=== PATIENT | male | born 1930 | race Caucasian/White ===

== ENCOUNTER 2017-10-12 04:26 | Inpatient (IN) | payer MEDICARE, MEDICAID ==
[~2017-10-12] VITALS: Ht 170.2 cm; Wt 80.3 kg
[~2017-10-12 04:26] MED LIST: ACETAMINOPHEN325 M1 PO; ALAVERT10 MG PO; ALLERGY10 M2 PO; ARTIFICIAL TEA1 EACH OP; ARTIFICIAL TEA1 EACH OPHTHALMIC; ASPIR 8181 MG PO; ATIVAN0.5 MG PO; AUGMENTIN 500-1 EACH PO; AUGMENTIN 875875 MG PO; BENADRYL25 MG PO; CARBIDOPA-LEVO1 EAC9 PO; CLARITIN10 MG PO; CLOTRIMAZOLE-BE15 GM TOP; COLACE100 MG PO; CONSTULOSE10 GM/15 M PO; COZAAR 50 MG TA50 M2 PO; DEPAKOTE500 MG PO; DIVALPROEX SOD250 M1 PO; DIVALPROEX SOD250 M3 PO; DULCOLAX5 MG PO; DUONEB 2.5-0.5 M3 ML INH; EAR WAX DROPS15 ML OT; EXELON 9.5 MG9.5 MG TD; EXELON 9.5 MG9.5 MG TOP; EXELON1 EAC1 TOP; GLIPIZIDE ER5 MG PO; GLUCAGEN1 M2 IM; GLUCAGEN1 M2 SUBQ; GLUCOTROL5 MG; GLUCOTROL5 MG PO; HYDROCODONE-AP1 EAC6 PO; KEFLEX250 MG PO; KETOCONAZOLE15 GM TOP; KRISTALOSE10 GM PO; LACTULOSE10 GM/152 PO; LEVEMIR SQ; LEVEMIR SUBQ; LEXAPRO 10 MG T10 M1 PO; LEXAPRO 10 MG T10 M2 PO; LIPITOR10 MG PO; LOPRESSOR25 PO; LOSARTAN POTASS50 MG PO; MAPAP ARTHRITI650 MG PO; MELATONIN3 MG PO; MILK OF MA2400 MG/10 PO; MIRALAX17 GM PO; MOM PO; NAMENDA 5 MG TAB5 M1 PO; NAMENDA XR PO; NAMENDA XR28 MG PO; NOVOLOG100 UNIT/1; NOVOLOG100 UNIT/1 SQ; NOVOLOG100 UNIT/1 SUBQ; ONDANSETRON HCL4 M2 PO; ONDANSETRON ODT4 MG PO; PRILOSEC40 MG PO; SILTUSSIN DM C118 ML PO; SIMVASTATIN40 MG PO; SINEMET 25-1001 EAC1 PO; TRAMADOL 50 MG50 MG PO; TRIAMCINOLONE A80 G2 TOP; TRINTELLIX PO; ULTRAM 50MG TAB50 MG PO; VIMPAT50 MG PO; ZOCOR20 MG PO; trintellix PO
[2017-10-12 04:28] VITALS: BP 174/101
[2017-10-12 04:50] LABS: ABSOLUTE BASOPHILS 0.1 thou/uL (0.0-0.2); ABSOLUTE EOSINOPHILS 0.2 thou/uL (0.0-0.7); ABSOLUTE LYMPHOCYTES 3.1 thou/uL (0.8-5.3); ABSOLUTE MONOCYTES 0.6 thou/uL (0.0-1.2); ABSOLUTE NEUTROPHILS 3.8 thou/uL (1.6-8.1); BASOPHILS 0.9 %; EOSINOPHILS 2.6 %; HEMATOCRIT 35.6 % (42.0-52.0); HEMOGLOBIN 12.1 gm/dL (14.0-18.0); LYMPHOCYTES 39.1 %; MCH 30.7 pg (26.0-34.0); MCHC 33.8 g/dL (28.0-37.0); MCV 90.6 fL (80.0-100.0); MONOCYTES 8.3 %; MPV 6.8 fl. (7.2-11.1); NUCLEATED RBCS 0 /100WBC; PLATELET COUNT* 218 thou/uL (150-400); POLYS 49.1 %; RBC 3.93 mil/uL (4.50-6.00); RDW-CV 14.2 % (10.5-14.5); WBC 7.8 thou/uL (4.0-11.0)
[2017-10-12 04:57] LABS: ANION GAP 6 mmol/L (7-16); BUN 24 mg/dL (7-18); CALCIUM 8.6 mg/dL (8.5-10.1); CHLORIDE 112 mmol/L (98-107); CO2 32 mmol/L (21-32); CREATININE 1.2 mg/dL (0.6-1.3); GLUCOSE 152 mg/dL (70-99); POTASSIUM 4.2 mmol/L (3.5-5.1); SODIUM 150 mmol/L (136-145)
[2017-10-12 05:06] LABS: ALBUMIN 2.7 g/dL (3.4-5.0); ALKALINE PHOSPHATASE 75 U/L (46-116); LIPASE 129 U/L (73-393); SGOT 32 U/L (15-37); SGPT 17 U/L (30-65); TOTAL BILIRUBIN 0.4 mg/dL (<0.1-1.0); TOTAL PROTEIN 6.7 g/dL (6.4-8.2); TROPONIN-I LEVEL <0.06 ng/mL (<0.06)
[2017-10-12 08:18] VITALS: BP 156/76
[2017-10-12 08:20] VITALS: BP 187/93
[2017-10-12 15:48] VITALS: BP 173/83
[2017-10-12 20:15] VITALS: BP 149/95
[2017-10-13] VITALS: BP 147/72
[2017-10-13 04:00] VITALS: BP 140/91
[2017-10-13 04:43] LABS: HEMOGLOBIN 12.6 gm/dL (14.0-18.0); MCH 30.7 pg (26.0-34.0); MCHC 33.3 g/dL (28.0-37.0); MCV 92.3 fL (80.0-100.0); MPV 6.8 fl. (7.2-11.1); RBC 4.11 mil/uL (4.50-6.00); WBC 8.6 thou/uL (4.0-11.0)
[2017-10-13 05:34] LABS: ALBUMIN 2.9 g/dL (3.4-5.0); ALKALINE PHOSPHATASE 86 U/L (46-116); ANION GAP 12 mmol/L (7-16); BUN 20 mg/dL (7-18); CALCIUM 8.3 mg/dL (8.5-10.1); CHLORIDE 108 mmol/L (98-107); CO2 24 mmol/L (21-32); GLUCOSE 108 mg/dL (70-99); MAGNESIUM 1.8 mg/dL (1.8-2.4); POTASSIUM 3.6 mmol/L (3.5-5.1); SGOT 22 U/L (15-37); SGPT 18 U/L (30-65); SODIUM 144 mmol/L (136-145); TOTAL BILIRUBIN 0.4 mg/dL (<0.1-1.0); TOTAL PROTEIN 6.2 g/dL (6.4-8.2); TROPONIN-I LEVEL <0.06 ng/mL (<0.06)
[2017-10-13 12:05] VITALS: BP 119/87
[2017-10-13 15:32] VITALS: BP 143/78
--- NOTE | 2017-10-13 17:00 | EKG ---
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1930 Requested By: Junito Gallego Order Number: [id number] Carlos A MD: Ray Redd Measurements Intervals [place] Rate: 62 P: [place]: QRS: -45 QRSD: 95 T: 71 QT: 436 QTc: 443 Interpretive Statements Atrial fibrillation Left anterior fascicular block Anterior infarct, old Baseline wander in lead(s) II,III,aVR,aVF,V6 Compared to ECG 10/05/2016 14:37:10 Sinus bradycardia no longer present ST (T wave) deviation no longer present Myocardial infarct finding still present Electronically Signed On 10-13-2017 17:00:33 [employer]IVERY by Ray Redd [email or web address] <ELECTRONICALLY SIGNED> By: Ray Redd MD, FAC 10/13/17 1700 1118 1118 Ray Redd MD, [facility] /EPI
[2017-10-13 19:38] VITALS: BP 166/60
[2017-10-14] VITALS: BP 158/62
[2017-10-14 04:01] VITALS: BP 142/60
[2017-10-14 04:58] LABS: HEMATOCRIT 36.9 % (42.0-52.0); HEMOGLOBIN 12.8 gm/dL (14.0-18.0); MCH 30.7 pg (26.0-34.0); MCHC 34.6 g/dL (28.0-37.0); MCV 88.8 fL (80.0-100.0); MPV 6.8 fl. (7.2-11.1); RBC 4.15 mil/uL (4.50-6.00); RDW-CV 13.9 % (10.5-14.5); WBC 6.7 thou/uL (4.0-11.0)
[2017-10-14 05:09] LABS: CALCIUM 8.5 mg/dL (8.5-10.1); CREATININE 0.9 mg/dL (0.6-1.3); MAGNESIUM 1.7 mg/dL (1.8-2.4); POTASSIUM 3.6 mmol/L (3.5-5.1)
[2017-10-14 08:30] VITALS: BP 142/83
[2017-10-14 12:00] VITALS: BP 117/67
[2017-10-14 16:00] VITALS: BP 137/62
[2017-10-14 20:00] VITALS: BP 165/76
[2017-10-15] VITALS: BP 140/66
[2017-10-15 04:03] VITALS: BP 159/72
[2017-10-15 08:00] VITALS: BP 178/88
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
[2017-10-15] MEDS ORDERED: CIPRO500 MG PO (11:36)
[2017-10-15 12:00] VITALS: BP 153/68
[2017-10-15 13:01] VITALS: BP 153/68
--- NOTE | 2017-10-16 12:38 | EKG ---
[place] [address] ELECTROCARDIOGRAM REPORT Name: JAMESON BELTRÁN Room: [address] IN M.R.#: [id number] Admission: 10/12/17 Attend Phys: Junito Gallego, Discharge: 10/15/17 Date of : 31 Report #: [id number] THIS REPORT FOR: //name// 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 <ELECTRONICALLY SIGNED> By: Pelon Alcocer MD, FACC 10/16/17 1238 0425 0425 Pelon Alcocer MD, FAC /EPI
== END 2017-10-15 14:15 | DRG 640 ==
LOC: M.ERS 04:26 → M.TBA-ER 06:46 → M.2W 06:46
PROVIDERS: Emergency Medicine; Internal Medicine; ADMIT Family Medicine
DX: E87.0 Hyperosmolality and hypernatremia (principal); G93.40 Encephalopathy, unspecified; E44.0 Moderate protein-calorie malnutrition; I48.1 Persistent atrial fibrillation; E44.1 Mild protein-calorie malnutrition; I16.0 Hypertensive urgency; E86.9 Volume depletion, unspecified; F03.90 Unspecified dementia, unspecified severity, without behavioral disturbance, psychotic disturbance, mood disturbance, and anxiety; K80.20 Calculus of gallbladder without cholecystitis without obstruction; W18.39XA Other fall on same level, initial encounter; G89.29 Other chronic pain; M54.9 Dorsalgia, unspecified; N40.0 Benign prostatic hyperplasia without lower urinary tract symptoms; I50.9 Heart failure, unspecified; I11.0 Hypertensive heart disease with heart failure; E78.5 Hyperlipidemia, unspecified; E11.65 Type 2 diabetes mellitus with hyperglycemia; E86.0 Dehydration; I45.9 Conduction disorder, unspecified; Z87.820 Personal history of traumatic brain injury; Z87.442 Personal history of urinary calculi; Z79.899 Other long term (current) drug therapy; Z79.4 Long term (current) use of insulin; Z79.82 Long term (current) use of aspirin; Y93.89 Activity, other specified; Y92.89 Other specified places as the place of occurrence of the external cause; Y99.8 Other external cause status; Z82.49 Family history of ischemic heart disease and other diseases of the circulatory system; Z79.01 Long term (current) use of anticoagulants; Z87.440 Personal history of urinary (tract) infections; Z95.1 Presence of aortocoronary bypass graft; Z86.73 Personal history of transient ischemic attack (TIA), and cerebral infarction without residual deficits; Z68.27 Body mass index [BMI] 27.0-27.9, adult

== ENCOUNTER 2018-04-07 15:49 | Inpatient (IN) | payer MEDICARE, MEDICAID ==
[~2018-04-07] VITALS: Ht 172.7 cm; Wt 89.8 kg
[~2018-04-07 15:49] MED LIST changes: +CIPRO500 MG PO
[2018-04-07] MEDS ORDERED: LEVEMIR SUBQ (16:01)
[2018-04-07] MEDS ORDERED: NOVOLOG100 UNIT/1 SUBQ (16:02)
[2018-04-07] MEDS ORDERED: ASPIR 8181 MG PO (16:10)
[2018-04-07] MEDS ORDERED: DULCOLAX5 MG PO (16:11)
[2018-04-07] MEDS ORDERED: COLACE100 MG PO (16:12)
[2018-04-07] MEDS ORDERED: SINEMET 25-1001 EAC1 PO (16:12)
[2018-04-07] MEDS ORDERED: CLARITIN10 MG PO (16:13)
[2018-04-07] MEDS ORDERED: ATIVAN0.5 MG PO (16:13)
[2018-04-07] MEDS ORDERED: LACTULOSE10 GM/15 M PO (16:13)
[2018-04-07] MEDS ORDERED: NAMENDA 5 MG TAB5 M1 PO (16:14)
[2018-04-07] MEDS ORDERED: COZAAR 50 MG TA50 M2 PO (16:14)
[2018-04-07] MEDS ORDERED: NYAMYC15 GM TOP (16:15)
[2018-04-07] MEDS ORDERED: EXELON1 EAC1 TRANSDERM (16:16)
[2018-04-07] MEDS ORDERED: BRINTELLIX20 MG PO (16:16)
[2018-04-07] MEDS ORDERED: VIMPAT50 MG PO (16:17)
[2018-04-07 16:32] LABS: ABSOLUTE EOSINOPHILS 0.2 thou/uL (0.0-0.7); ABSOLUTE LYMPHOCYTES 1.7 thou/uL (0.8-5.3); ABSOLUTE MONOCYTES 0.6 thou/uL (0.0-1.2); ABSOLUTE NEUTROPHILS 4.4 thou/uL (1.6-8.1); BASOPHILS 0.4 %; EOSINOPHILS 2.7 %; HEMATOCRIT 29.7 % (42.0-52.0); HEMOGLOBIN 9.7 gm/dL (14.0-18.0); LYMPHOCYTES 24.7 %; MCH 28.9 pg (26.0-34.0); MCHC 32.6 g/dL (28.0-37.0); MCV 88.6 fL (80.0-100.0); MONOCYTES 8.5 %; MPV 6.8 fl. (7.2-11.1); NUCLEATED RBCS 0 /100WBC; PLATELET COUNT* 261 thou/uL (150-400); POLYS 63.7 %; RBC 3.35 mil/uL (4.50-6.00); RDW-CV 14.4 % (10.5-14.5); WBC 6.9 thou/uL (4.0-11.0)
[2018-04-07 16:47] LABS: APTT 37.1 Seconds (25.0-31.3); INR 1.1; PROTIME 10.7 Seconds (9.20-11.50)
[2018-04-07 16:50] LABS: CALCIUM 7.8 mg/dL (8.5-10.1); CREATININE 1.5 mg/dL (0.6-1.3); POTASSIUM 4.6 mmol/L (3.5-5.1)
[2018-04-07 16:54] LABS: ALBUMIN 2.3 g/dL (3.4-5.0); TOTAL BILIRUBIN 0.3 mg/dL (<0.1-1.0); TOTAL PROTEIN 7.2 g/dL (6.4-8.2)
[2018-04-07 18:27] LABS: URINE BILIRUBIN NEGATIVE (Negative); URINE BLOOD 3+ (Negative); URINE CLARITY CLEAR; URINE COLOR YELLOW; URINE GLUCOSE-RANDOM NEGATIVE (Negative); URINE KETONES NEGATIVE (Negative); URINE LEUKOCYTES NEGATIVE (Negative); URINE NITRITE NEGATIVE (Negative); URINE PROTEIN TRACE (Negative); URINE SPECIFIC GRAVITY 1.015 (1.005-1.030); URINE UROBILINOGEN 0.2 E.U./dl (0.2-1.0)
[2018-04-07 18:37] LABS: URINE RBC 3-10 Few /HPF (0-2)
[2018-04-07 18:38] LABS: AMORPHOUS URATES Few /LPF (None Seen); SQUAMOUS NONE SEEN /LPF (0-3); URINE WBC 0-5 Rare /HPF (0-5)
[2018-04-07 18:39] LABS: BACTERIA 1-9 Few /HPF (None Seen); HYALINE CASTS 0-3 Few /LPF (None Seen); MUCUS None Seen strn/LPF (None Seen)
[2018-04-07 21:02] VITALS: BP 195/88
[2018-04-08] MEDS ORDERED: LASIX 20 MG TAB20 MG PO (00:27)
[2018-04-08 05:17] LABS: HEMATOCRIT 29.8 % (42.0-52.0); HEMOGLOBIN 9.7 gm/dL (14.0-18.0); MCH 29.4 pg (26.0-34.0); MCHC 32.7 g/dL (28.0-37.0); MPV 6.9 fl. (7.2-11.1); RBC 3.31 mil/uL (4.50-6.00); RDW-CV 14.3 % (10.5-14.5); WBC 9.2 thou/uL (4.0-11.0)
[2018-04-08 05:30] LABS: ALBUMIN 2.2 g/dL (3.4-5.0); CALCIUM 7.8 mg/dL (8.5-10.1); CREATININE 1.7 mg/dL (0.6-1.3); POTASSIUM 5.1 mmol/L (3.5-5.1); TOTAL BILIRUBIN 0.4 mg/dL (<0.1-1.0); TOTAL PROTEIN 6.9 g/dL (6.4-8.2)
[2018-04-08 07:45] VITALS: BP 137/89
[2018-04-08 16:37] VITALS: BP 159/70
[2018-04-09 01:00] VITALS: BP 160/83
[2018-04-09 03:54] LABS: HEMOGLOBIN 10.7 gm/dL (14.0-18.0); MCH 29.2 pg (26.0-34.0); MCHC 32.2 g/dL (28.0-37.0); MCV 90.5 fL (80.0-100.0); MPV 7.4 fl. (7.2-11.1); RBC 3.65 mil/uL (4.50-6.00); RDW-CV 14.7 % (10.5-14.5); WBC 9.8 thou/uL (4.0-11.0)
[2018-04-09 03:55] LABS: CALCIUM 7.9 mg/dL (8.5-10.1); CREATININE 2.1 mg/dL (0.6-1.3); POTASSIUM 5.3 mmol/L (3.5-5.1)
[2018-04-09 09:30] VITALS: BP 158/88
[2018-04-09 16:03] LABS: CALCIUM 7.9 mg/dL (8.5-10.1); CREATININE 2.2 mg/dL (0.6-1.3); POTASSIUM 5.8 mmol/L (3.5-5.1)
--- NOTE | 2018-04-09 17:28 | EKG ---
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 : 1930 Requested By: Danni Redmond Order Number: [id number] MD: El Pacheco Measurements Intervals [place] Rate: 56 P: [place]: QRS: -43 QRSD: 99 T: -20 QT: 449 QTc: 434 Interpretive Statements Atrial fibrillation Probable inferior infarct, age indeterminate Anterior infarct, old Compared to ECG 10/15/2017 04:25:33 Left anterior fascicular block no longer present ST (T wave) deviation no longer present Myocardial infarct finding still present Electronically Signed On 04-09-2018 17:28:42 CDT by El Pacheco [email or web address] <ELECTRONICALLY SIGNED> By: El Pacheco MD, FAC 04/09/18 1728 1730 173 El Pacheco MD, FAC /EPI
[2018-04-09 20:00] VITALS: BP 154/72
[2018-04-10] VITALS: BP 150/83
[2018-04-10 04:00] VITALS: BP 158/82; BP 173/72
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
[2018-04-10 08:00] VITALS: BP 167/91
[2018-04-10 08:31] LABS: HEMATOCRIT 29.6 % (42.0-52.0); HEMOGLOBIN 9.6 gm/dL (14.0-18.0); MCH 29.1 pg (26.0-34.0); MCHC 32.6 g/dL (28.0-37.0); MCV 89.4 fL (80.0-100.0); MPV 7.6 fl. (7.2-11.1); RBC 3.31 mil/uL (4.50-6.00); RDW-CV 14.5 % (10.5-14.5); WBC 7.5 thou/uL (4.0-11.0)
[2018-04-10 08:42] LABS: CALCIUM 7.6 mg/dL (8.5-10.1); CREATININE 2.3 mg/dL (0.6-1.3); MAGNESIUM 2.3 mg/dL (1.8-2.4); PHOSPHORUS* 5.1 mg/dL (2.5-4.9)
[2018-04-10 08:44] LABS: POTASSIUM 4.3 mmol/L (3.5-5.1)
[2018-04-10 12:00] VITALS: BP 194/92
[2018-04-10 16:00] VITALS: BP 182/86
[2018-04-10 20:00] VITALS: BP 163/85
[2018-04-11] VITALS: BP 117/85
[2018-04-11 04:00] VITALS: BP 169/82
[2018-04-11 04:42] LABS: HEMATOCRIT 32.6 % (42.0-52.0); HEMOGLOBIN 10.4 gm/dL (14.0-18.0); MCH 29.1 pg (26.0-34.0); MCHC 31.9 g/dL (28.0-37.0); MCV 91.1 fL (80.0-100.0); MPV 7.5 fl. (7.2-11.1); RBC 3.58 mil/uL (4.50-6.00); RDW-CV 15.2 % (10.5-14.5); WBC 9.5 thou/uL (4.0-11.0)
[2018-04-11 05:02] LABS: MAGNESIUM 2.5 mg/dL (1.8-2.4); PHOSPHORUS* 4.9 mg/dL (2.5-4.9)
[2018-04-11 05:31] LABS: ALBUMIN 2.4 g/dL (3.4-5.0); CALCIUM 8.2 mg/dL (8.5-10.1); CREATININE 2.6 mg/dL (0.6-1.3); POTASSIUM 4.6 mmol/L (3.5-5.1); TOTAL BILIRUBIN 0.4 mg/dL (<0.1-1.0); TOTAL PROTEIN 6.7 g/dL (6.4-8.2)
[2018-04-11 08:00] VITALS: BP 147/57
[2018-04-11 12:00] VITALS: BP 178/82
[2018-04-11 16:12] VITALS: BP 137/52
[2018-04-11 19:30] VITALS: BP 150/76
[2018-04-12] VITALS: BP 164/68
[2018-04-12 04:00] VITALS: BP 132/57
[2018-04-12 04:40] LABS: CALCIUM 8.1 mg/dL (8.5-10.1); CREATININE 2.7 mg/dL (0.6-1.3); MAGNESIUM 2.5 mg/dL (1.8-2.4); POTASSIUM 4.6 mmol/L (3.5-5.1)
[2018-04-12 04:52] LABS: HEMOGLOBIN 10.3 gm/dL (14.0-18.0); MCHC 31.3 g/dL (28.0-37.0); MCV 92.7 fL (80.0-100.0); MPV 7.7 fl. (7.2-11.1); RBC 3.56 mil/uL (4.50-6.00); RDW-CV 15.1 % (10.5-14.5); WBC 14.2 thou/uL (4.0-11.0)
[2018-04-12 07:30] VITALS: BP 129/72
[2018-04-12 12:00] VITALS: BP 154/92
[2018-04-12 16:00] VITALS: BP 144/75
[2018-04-12 19:30] VITALS: BP 165/77
[2018-04-13] VITALS: BP 153/83
[2018-04-13 04:00] VITALS: BP 165/82
[2018-04-13 04:53] LABS: HEMATOCRIT 32.1 % (42.0-52.0); HEMOGLOBIN 10.1 gm/dL (14.0-18.0); MCH 29.2 pg (26.0-34.0); MCHC 31.3 g/dL (28.0-37.0); MCV 93.2 fL (80.0-100.0); RBC 3.44 mil/uL (4.50-6.00); RDW-CV 15.2 % (10.5-14.5); WBC 8.8 thou/uL (4.0-11.0)
[2018-04-13 05:19] LABS: CALCIUM 8.7 mg/dL (8.5-10.1); CREATININE 2.8 mg/dL (0.6-1.3); MAGNESIUM 2.8 mg/dL (1.8-2.4)
[2018-04-13 08:15] VITALS: BP 180/88
[2018-04-13 12:03] VITALS: BP 181/84
[2018-04-13 13:16] VITALS: BP 181/84
[2018-04-13 16:00] VITALS: BP 178/107
--- NOTE | 2018-04-22 08:24 | OP ---
[facility] [address] [place] [address] OPERATIVE REPORT Name: JAMESON BELTRÁN Room: [address]R.#: [id number] Admission: 04/07/18 Attend Phys: Mathieu Argueta Discharge: 04/13/18 Date of : 32 Report #: [id number] THIS REPORT FOR: //name// CC: Kalli Nunez DICTATED BY: Juwan Obrien DO DATE OF SERVICE: 04/09/2018 PREOPERATIVE DIAGNOSIS: Right medial gluteal decubitus ulcer. POSTOPERATIVE DIAGNOSIS: Right medial gluteal decubitus ulcer. PROCEDURE PERFORMED: Sharp excisional debridement of a sacral decubitus ulcer including skin, subcutaneous tissue, and subcutaneous fat. ANESTHESIA: General. SURGEON: Dr. Patty Fonseca. CO-SURGEON: Juwan Obrien. ASSISTANTS: None. ESTIMATED BLOOD LOSS: 10 mL. COMPLICATIONS: None. HISTORY OF PRESENT ILLNESS: The patient is an 87-year-old male with dementia who was presenting with a wound in his right buttock for the past 2-3 weeks. He was evaluated by his primary care physician who recommended that he be evaluated for debridement of the wound. Preoperatively, the wound measured 5 x 4 x 3 cm in depth down to the level of subcutaneous tissue and muscle. It was decided that the wound itself would need sharp excisional debridement in the operating room. Risks and complications were discussed including bleeding, infection, injury to surrounding structures, risk of recurrence and risk of anesthesia. He and his family agreed to proceed with surgery. DESCRIPTION OF PROCEDURE: After consent was obtained, the patient was taken to the operating room and placed in the prone position. Anesthesia was administered without any complication. SCDs applied to bilateral lower extremities, safety belt placed across the patient's back. The patient was then prepped and draped in standard sterile fashion. A timeout was performed to confirm the patient and procedure. Using a 15 blade scalpel, [place] [address] OPERATIVE REPORT Name: JAMESON BELTRÁN Room: [address] IN [facility].#: [id number] Admission: 04/07/18 Attend Phys: Mathieu Argueta Discharge: 04/13/18 Date of : 31 Report #: [id number] the edges of the wound was made until bleeding was observed. Fibrinous tissue within the middle of the wound was sharply debrided again until bleeding was observed. After debridement, the wound measured 6 x 5 x 4 cm. Again, this was down to the level of subcutaneous tissue. Hemostasis was ensured with electrocautery. One liter of normal saline was irrigated in the wound using the Pulsavac. The wound was then dried and packed with Aquacel Ag. Sterile dressing was placed over top. The patient tolerated the procedure well. All counts were correct at the end of the case. The patient was awoken from anesthesia without any complication, transferred to PACU in stable condition. <ELECTRONICALLY SIGNED> By: Patty Davis MD 04/22/18 0824 1450 [id number] Davis MD /nt
== END 2018-04-13 18:52 | DRG 570 ==
LOC: M.ERS 15:49 → M.ORTHSURG 18:26 → M.TBA-ER 18:26 → M.ORTHSURG 21:15 → M.2W 04-09 16:52
PROVIDERS: Family Medicine; Internal Medicine; Internal Medicine Nephrology; Nurse Practitioner Family; ADMIT Internal Medicine
PROC: 0JB90ZZ Excision of Buttock Subcutaneous Tissue and Fascia, Open Approach (ICD-10-PCS; principal; 2018-04-09)
DX: L89.314 Pressure ulcer of right buttock, stage 4 (principal); J15.6 Pneumonia due to other Gram-negative bacteria; N17.0 Acute kidney failure with tubular necrosis; J96.01 Acute respiratory failure with hypoxia; I42.9 Cardiomyopathy, unspecified; N39.0 Urinary tract infection, site not specified; F03.90 Unspecified dementia, unspecified severity, without behavioral disturbance, psychotic disturbance, mood disturbance, and anxiety; N40.0 Benign prostatic hyperplasia without lower urinary tract symptoms; I50.9 Heart failure, unspecified; I48.91 Unspecified atrial fibrillation; E78.5 Hyperlipidemia, unspecified; I25.10 Atherosclerotic heart disease of native coronary artery without angina pectoris; I11.0 Hypertensive heart disease with heart failure; E87.5 Hyperkalemia; D64.9 Anemia, unspecified; E11.9 Type 2 diabetes mellitus without complications; Z87.820 Personal history of traumatic brain injury; Z87.828 Personal history of other (healed) physical injury and trauma; Z95.1 Presence of aortocoronary bypass graft; Z87.442 Personal history of urinary calculi; Z79.4 Long term (current) use of insulin; Z79.82 Long term (current) use of aspirin; Z79.899 Other long term (current) drug therapy